=== PATIENT | female | born 1995 | race Caucasian/White ===

== ENCOUNTER → 2018-08-18 | Outpatient (CLI) | payer BC ==
[2018-08-18 23:22] LABS: DHEA Sulfate 223.1 ug/dL (26.0-430.0)
[2018-08-18 23:23] LABS: Sex Horm Bind Glob 26.6 nmol/L (10.84-180.00)
[2018-08-18 23:31] LABS: Parathyroid Hormone Intact 40.6 pg/mL (14.0-72.0)
== END | disposition home or self-care (01) ==
LOC: LABWHC1 16:44
PROVIDERS: ATTEND Dermatology
DX: L68.0 Hirsutism (principal)
CPT/HCPCS: 36415; 82157; 82310; 82627; 83001; 83002; 83970; 84270; 84402; 84403